=== PATIENT | female | born 1995 | race Caucasian/White ===

== ENCOUNTER 2018-06-30 13:15 | Emergency (ER) | payer SELFPAY ==
[2018-06-30] MEDS ORDERED: NS 2,000 ML IV ONE (13:22)
--- NOTE | 2018-06-30 13:24 | EDPHY ---
H & P Time Seen by Provider: 06/30/18 13:22 HPI/ROS: HPI CHIEF COMPLAINT: Suicide attempt, drug overdose, M1 HOLD HISTORY OF PRESENT ILLNESS: 22-year-old female presents emergency room for a suicide attempt with drug overdose. Per EMS the patient to notes that were suicide notes. And took a sleep aid as well as Claritin. Unclear exactly how much she took. According to EMS she also had a seizure at the scene and arrives postictal at this time. History review systems extremely limited due to patient's clinical state and presentation. Per EMS 911 was called the police arrived 1st. Her brother called 911 stating that he got a text that she wanted help. Did not go through it. Per EMS it sounds like she took a large dose of Claritin and some kind of sleep date. Not sure exactly the name. Additionally EMS reports that she had a grand mal seizure while transporting her here. 45 sec. Past Medical History: Unknown medical history Past Surgical History: Unknown surgical history Social History: Unknown Family History: Unknown ROS REVIEW OF SYSTEMS: Limited due to patient's clinical state. Exam Constitutional nonverbal at this time, triage nursing summary reviewed, vital signs reviewed, awake/alert. Tachycardic in the 170s. Eyes normal conjunctivae and sclera, EOMI, PERRLA. HENT normal inspection, atraumatic, moist mucus membranes, no epistaxis, neck supple/ no meningismus, no raccoon eyes. Respiratory clear to auscultation bilaterally, normal breath sounds, no respiratory distress, no wheezing. Cardiovascular tachycardic, regular rhythm, no murmur, no edema, distal pulses normal. Gastrointestinal soft, non-tender, no rebound, no guarding, normal bowel sounds, no distension, no pulsatile mass. Genitourinary no CVA tenderness. Musculoskeletal no midline vertebral tenderness, full range of motion, no calf swelling, no tenderness of extremities, no meningismus, good pulses, neurovascularly intact. Skin pink, warm, & dry, no rash, skin atraumatic. Neurologic Unresponsive, but not answering any of my questions, Possibly in status. Has Horizontal Nystagmus Psychiatric normal mood/affect. Heme/Lymph/Immune no lymphadenopathy. Differential Diagnosis: Includes but is not drug overdose, suicide attempt, electrolyte disturbance, dehydration, cardiac arrhythmia Medical Decision Making: Plan for this patient IV establishment full satellite project site monitor obtain EKG, electrolytes, IV fluid bolus, drug screen, Tylenol level, salicylate level, contact poison Control. Re-evaluation: 1344: That is arrived reports that he thinks she took a large amount of Benadryl. However the father is unsure if there is any other comma ingestions. Per EMS it is reported that she had pill bottles at bedside that showed Claritin , melatonin, Afrin, loperamide. 1351: Given this patient's ongoing abnormal nystagmus on exam, and still not responding to me appropriately or interacting with me there is concern for status. Given her generalized tonic-clonic seizure earlier. It Is unclear if she is not responding and having nystagmus due to the overdosed that she took a possible other medications she took or if she still having subclinical seizures. 1354: Patient noted be persistently tachycardic in the 150s. She still has significant rotary and vertical nystagmus on exam. This is concerning for subclinical seizures. It could also be due to the medication she took. Given that this concern for status epilepticus the patient be intubated. She be started on antiseizure medications including Keppra, benzos, possible fall. She will need to be transferred by helicopter to [facility] ICU for continuous EEG monitoring. Will speak with [facility]. 1345: Spoke with [facility]: Dr Wayne, discussed this case in detail. Concern for status epilepticus. Given concern for status the decision was made to emergently intubate. The patient will be emergently intubated due to status epilepticus. She will be given Keppra, propofol bolus, propofol drip, Ativan, and should be flown by helicopter to [facility] neuro ICU for continuous EEG monitor Also Spoke with Poison Control: Discussed the case in detail. CASE #: [id number] discussed case in detail. Agree with current management plan. . 1413: Dad at bedside who is orthopaedic Surgeon. Discussed the case in detail with him. He is up-to-date. Agrees with current treatment plan intubation. Critical Care: Total Critical Care Time Spent Managing this Patient: 65 Minutes. This time was spent Exclusively with this patient. This Care was exclusive of procedures. The Organ System/life at risk was respiratory failure, status epilepticus This Patient was in Critical Condition because Statues, Resp failure, Overdose Chest x-ray one view for intubation endotracheal tube is in the appropriate position. Good lung mckay bilaterally. Large amount of air in the stomach. Will place OG tube for this. Source: Patient, EMS Constitutional: Initial Vital Signs Temperature (C) 37.3 C 06/30/18 13:15 Heart Rate 179 H 06/30/18 13:15 Respiratory Rate 34 H 06/30/18 13:15 Blood Pressure 131/76 H 06/30/18 13:15 O2 Sat (%) 95 06/30/18 13:15 O2 Delivery Mode Nasal Cannula O2 (L/minute) 2 Allergies/Adverse Reactions: No Known Allergies Allergy (Verified 06/30/18 13:27) Home Medications: Medication Instructions Recorded NK [No Known Home Meds] 06/30/18 Medical Decision Making - Data Points Laboratory Results: Laboratory Results 06/30/18 13:25 06/30/18 13:25 06/30/18 06/30/18 06/30/18 13:28 13:25 13:25 WBC RBC Hgb Hct MCV MCH MCHC RDW Plt Count MPV Neut % (Auto) Lymph % (Auto) Stanley % (Auto) Eos % (Auto) Baso % (Auto) Nucleat RBC Rel Count Absolute Neuts (auto) Absolute Lymphs (auto) Absolute Monos (auto) Absolute Eos (auto) Absolute Basos (auto) Absolute Nucleated RBC Immature Gran % Immature Gran # Sodium Potassium Chloride Carbon Dioxide Anion Gap BUN Creatinine Estimated GFR Glucose Calcium Phosphorus Total Bilirubin Pending Conjugated Bilirubin Pending Unconjugated Bilirubin Pending AST Pending ALT Pending Alkaline Phosphatase Pending POC Troponin I 0.02 ng/mL ng/mL (0.00-0.08) Troponin I Total Protein Pending Albumin Pending Beta HCG, Qual NEGATIVE Salicylates Acetaminophen Ethyl Alcohol 06/30/18 06/30/18 13:25 13:25 WBC 7.68 10^3/uL 10^3/uL (3.80-9.50) RBC 5.31 10^6/uL 10^6/uL (4.18-5.33) Hgb 15.8 g/dL g/dL (12.6-16.3) Hct 50.9 % H % (38.0-47.0) MCV 95.9 fL fL (81.5-99.8) MCH 29.8 pg pg (27.9-34.1) MCHC 31.0 g/dL L g/dL (32.4-36.7) RDW 13.5 % % (11.5-15.2) Plt Count 307 10^3/uL 10^3/uL (150-400) MPV 10.7 fL fL (8.7-11.7) Neut % (Auto) 21.8 % L % (39.3-74.2) Lymph % (Auto) 54.4 % H % (15.0-45.0) Stanley % (Auto) 10.7 % % (4.5-13.0) Eos % (Auto) 11.6 % H % (0.6-7.6) Baso % (Auto) 1.2 % % (0.3-1.7) Nucleat RBC Rel Count 0.0 % % (0.0-0.2) Absolute Neuts (auto) 1.68 10^3/uL L 10^3/uL (1.70-6.50) Absolute Lymphs (auto) 4.18 10^3/uL H 10^3/uL (1.00-3.00) Absolute Monos (auto) 0.82 10^3/uL H 10^3/uL (0.30-0.80) Absolute Eos (auto) 0.89 10^3/uL H 10^3/uL (0.03-0.40) Absolute Basos (auto) 0.09 10^3/uL 10^3/uL (0.02-0.10) Absolute Nucleated RBC 0.00 10^3/uL 10^3/uL (0-0.01) Immature Gran % 0.3 % % (0.0-1.1) Immature Gran # 0.02 10^3/uL 10^3/uL (0.00-0.10) Sodium 154 mEq/L H mEq/L (135-145) Potassium 4.1 mEq/L mEq/L (3.3-5.0) Chloride 112 mEq/L H mEq/L (97-110) Carbon Dioxide 16 mEq/l L mEq/l (22-31) Anion Gap 26 mEq/L H mEq/L (8-16) BUN 13 mg/dL mg/dL (7-23) Creatinine 1.2 mg/dL H mg/dL (0.6-1.0) Estimated GFR 56 Glucose 111 mg/dL H mg/dL (70-100) Calcium 11.3 mg/dL H mg/dL (8.5-10.4) Phosphorus 5.4 mg/dL H mg/dL (2.5-4.5) Total Bilirubin Conjugated Bilirubin Unconjugated Bilirubin AST ALT Alkaline Phosphatase POC Troponin I Troponin I < 0.012 ng/mL ng/mL (0.000-0.034) Total Protein Albumin Beta HCG, Qual Salicylates < 1.0 mg/dL L mg/dL (2.0-20.0) Acetaminophen < 10 mcg/mL L mcg/mL (10-30) Ethyl Alcohol < 10 mg/dL mg/dL (0-10) Point of Care Test Results: Chemistry 06/30/18 13:28 POC Troponin I 0.02 ng/mL ng/mL (0.00-0.08) Departure - Departure Disposition: [facility] Clinical Impression: Status epilepticus Respiratory failure Qualifiers: Chronicity: acute Respiratory failure complication: hypoxia Qualified Code(s): J96.01 - Acute respiratory failure with hypoxia Condition: Critical Referrals: Patient,NotPresent [Unknown] - As per Instructions
[2018-06-30 13:33] LABS: PLATELET COUNT 307 10^3/uL (150-400)
[2018-06-30] MEDS ORDERED: LORazepam 2 MG/ML INJ IVP ONE ×2 (13:37→14:05)
[2018-06-30] MEDS ORDERED: LORazepam 2 MG/ML INJ ONE ×2 (13:38→14:06)
[2018-06-30] MEDS ORDERED: PROPOFOL/EMULSION 1,000 MG/100 ML BOTTLE IV ONE (13:56)
[2018-06-30] MEDS ORDERED: levETIRAcetam 1000MG/NACL 100 ML IV ONE ×2 (14:00→14:05)
[2018-06-30] MEDS ORDERED: PROPOFOL/EMULSION 50 ML IV ONE (14:05)
[2018-06-30] MEDS ORDERED: SUCCINYLCHOLINE CHLORIDE 200 MG/10 ML SYR IVP ONE (14:06)
[2018-06-30] MEDS ORDERED: ETOMIDATE 40 MG/20 ML INJ IVP ONE (14:06)
[2018-06-30 15:15] VITALS: BP 121/93
--- NOTE | 2018-06-30 16:42 | ASDISCHSUM ---
Discharge Information Plan Status:Acute Transfer Medically Cleared to Leave: Discharge Date:06/30/2018 03:00 PM CM D/C Disposition:[facility] ADT D/C Disposition:[facility] Projected Discharge Date:06/30/2018 03:00 PM Transportation at D/C:[facility] Discharge Delay Reason: Follow-Up Date:06/30/2018 03:00 PM Discharge Slot: Final Diagnosis: Placement Information Patient Contact Information Contact Name:KENYATTA PERSONVANNA Relationship:Father Address: City: [facility] Phone: [facility]/Zip Code: Email: Financial Information Financial Class:Self-Pay Primary Plan Desc:SELF PAY Primary Plan Number: Secondary Plan Desc: Secondary Plan Number: Assessment Information [facility] Progress Note CM Note CM Note Notes: Pt presented to the ED via EMS for a suicide attempt with drug overdose. EMS found pt in her apartment with what appeared to be suicide notes and various sleep aids and medications including Benadryl around her. Pt had a seizure during transport to the ED. Pt continued to have nystagmus and possible subclinical status epilepticus while in the ED. Pt was intubated. Neurology was consulted and it was recommended that pt be transferred to [facility]'s Neuro ICU for continuous EEG monitoring. Pt's father, Rylan ([phone]), and pt's brother, Pranay, arrived to the ED; Rylan states he called pt's mother, Lorrie ([phone]) who says she is driving straight to [facility]. Emotional support provided. Rylan spoke w/Lorrie who arrived to [facility]; this CM called [facility] Neuro ICU and spoke w/Yodit and requested someone from their [employer] services, case mgmt, or other emotional support team members attempt to contact Lorrie and provide support. Yodit is going to ensure Lorrie is connected w/support. Rylan states he knows where [facility] and does not need directions or contact info. Rylan is an orthopedic surgeon and he and Lorrie live in [place]. Pt and Pranay both live here in [place]. CM available for further assistance if needed. Date Signed: 06/30/2018 04:40 PM Electronically Signed By:Bernadette Trinidad RN Intervention Information Intervention Type:Emotional Support Date of Service:06/30/2018 04:41 PM Patient Type:Emergency Room Staff Member:WILLIAM Trinidad [place] Hours:0.5 Discipline:Death Claim Clerk Severity: Comment: Intervention Type:Post Acute Communication Date of Service:06/30/2018 04:41 PM Patient Type:Emergency Room Staff Member:WILLIAM Trinidad Sharon Hours:0.25 Discipline:Death Claim Clerk Severity: Comment:
--- NOTE | 2018-07-08 05:47 | CPEKG ---
Test Reason : OPEN Blood Pressure : / mmHG Vent. Rate : 175 BPM Atrial Rate : 175 BPM P-R Int : 090 ms QRS Dur : 106 ms QT Int : 327 ms P-R-T Axes : 076 162 041 degrees QTc Int : 558 ms Sinus tachycardia Right axis deviation Borderline Q waves in inferior leads Minimal ST depression, diffuse leads Prolonged QT interval Confirmed by Josué Conley ([id number]) on 07/08/2018 5:46:58 AM Referred By: Confirmed By:Josué Conley
== END 2018-06-30 15:00 | disposition short-term general hospital (02) ==
PROC: 0BH17EZ Insertion of Endotracheal Airway into Trachea, Via Natural or Artificial Opening (ICD-10-PCS; principal; 2018-06-30)
PROC: 0T9B70Z Drainage of Bladder with Drainage Device, Via Natural or Artificial Opening (ICD-10-PCS; principal; 2018-06-30)
DX: T14.91XA Suicide attempt, initial encounter (principal); T45.0X2A Poisoning by antiallergic and antiemetic drugs, intentional self-harm, initial encounter; J96.01 Acute respiratory failure with hypoxia; G40.901 Epilepsy, unspecified, not intractable, with status epilepticus; Y92.9 Unspecified place or not applicable
CPT/HCPCS: 80305; 84484-PO; 96365; 96374; G0480; J0330; J1953; J2060; J2704